=== PATIENT | female | born 1995 | race American Indian/Alaskan Native ===

== ENCOUNTER 2019-07-18 00:52 | Inpatient (IN) | payer SELFPAY ==
[2019-07-18] MEDS ORDERED: Lactated Ringers 1,000 ML IV ONE (01:14)
[2019-07-18] MEDS ORDERED: Ondansetron 4 MG/2 ML SDV IVPUSH PRN ×2 (01:20→15:56)
[2019-07-18] MEDS ORDERED: diphenhydrAMINE 50 MG/ML SDV IVPUSH PRN ×2 (01:21→15:56)
[2019-07-18] MEDS ORDERED: Acetaminophen 325 MG Tab PO PRN (01:22)
[2019-07-18] MEDS ORDERED: Scopolamine 1.5 MG Transdermal Patch TOP ONE (01:30)
[2019-07-18] MEDS: HYDROmorphone 1 MG/ML Syringe IVPUSH PRN ×2 (01:53→07:56)
[2019-07-18] MEDS: Piperacillin/Tazobactam 3.375 GM in Sodium Chloride 0.9% 50 ML IV SCH ×4 (02:01→20:38)
[2019-07-18] MEDS: Lactated Ringers 1,000 ML IV SCH ×2 (02:41→10:54)
[2019-07-18 05:09] LABS: BLOOD UREA NITROGEN,BUN 8 mg/dL (7.0-18.0); CARBON DIOXIDE,CO2 25.6 mmol/L (21.0-32.0); CHLORIDE,CL 104 mmol/L (98-107); GLUCOSE RANDOM 100 mg/dL (74-106); POTASSIUM,K 3.4 mmol/L (3.5-5.1); SODIUM,NA 141 mmol/L (136-145)
--- NOTE | 2019-07-18 08:21 | PCM.HP.2 ---
H&P History of Present Illness - General Date of Service: 07/18/19 Admit Problem/Dx: Admission Diagnosis/Problem Admission Diagnosis/Problem Cholelithiasis Source of Information: Patient History Limitations: Reports: No Limitations - History of Present Illness Initial Comments - Free Text/Narative: Patient is a 24 year old female who presents with acute cholecystitis. She has been having intermittent pain with meals. This usually happens immediately after a meal and is relieved with vomiting. Three days ago the pain became more severe and did not go away. She had multiple episodes of nausea and vomiting. The pain became more severe yesterday and she couldnt eat anything so she presented to an OSH. Her vitals were stable. WBC was normal. Her LFTs were mildly elevated. Her bilirubin was normal. CT abdomen/pelvis showed a stone in the neck of the gallbladder with edematous wall and cholecystic fluid. She was transferred here and admitted. She was made NPO, given IV zosyn, and given IV fluids. Her cbc is relatively normal. LFTs remain mildly elevated and bilirubin is still normal. 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 , , Spontaneous Musculoskeletal History: Reports: Other (See Below) Other Musculoskeletal History: scoliosis Neurological History: Reports: Migraines Psychiatric History: Reports: Addiction, Depression, Suicide Attempt Hematologic History: Reports: Anemia, Iron Deficiency - Infectious Disease History Infectious Disease History: Reports: Hepatitis C - Past Surgical History HEENT Surgical History: Reports: None GI Surgical History: Reports: None Neurological Surgical History: Reports: None Musculoskeletal Surgical History: Reports: None Social & Family History - Family History Cardiac: Reports: [place] Other Cardiac Family History: maternal and paternal grandmother GI: Reports: Cirrhosis Other GI Family History: paternal grandmother Musculoskeletal: Reports: Arthritis Endocrine/Metabolic: Reports: Diabetes, type II - Tobacco Use Smoking Status *Q: Current Every Day Smoker Years of Tobacco use: 1 Packs/Tins Daily: 0.5 Used Tobacco, but Quit: No Second Hand Smoke Exposure: Yes - Caffeine Use Caffeine Use: Reports: Coffee, Soda - Recreational Drug Use Recreational Drug Use: Yes Drug Use in Last 12 Months: Yes Recreational Drug Type: Reports: Methamphetamine, Oxycodone Other Recreational Drug Type: PT quit 5 months ago. H&P Review of Systems - Review of Systems: Review Of Systems: Comprehensive ROS is negative, except as noted in HPI. General: Reports: No Symptoms HEENT: Reports: No Symptoms Pulmonary: Reports: No Symptoms Cardiovascular: Reports: No Symptoms Gastrointestinal: Reports: Abdominal Pain Genitourinary: Reports: No Symptoms Exam - Exam Exam: See Below - Vital Signs Vital Signs: Last Vital Signs Temp 36.3 C 07/18/19 07:31 Pulse 72 07/18/19 07:31 Resp 18 07/18/19 07:31 BP 115/75 07/18/19 07:31 Pulse Ox 98 07/18/19 07:31 Weight: 96.978 kg - Exam General: Alert, Oriented HEENT: Conjunctiva Clear, Mucosa Moist & [place], Posterior Pharynx Clear Neck: Trachea Midline Lungs: Clear to Auscultation, Normal Respiratory Effort Cardiovascular: Regular Rate, Regular Rhythm GI/Abdominal Exam: Soft, No Distention, No Mass, Other (Positive Bhagat's Sign ) Back Exam: Normal Inspection - Patient Data Lab Results Last 24 hrs: Laboratory Results - last 24 hr 07/18/19 Range/Units 04:38 Sodium 141 (136-145) mmol/L Potassium 3.4 L (3.5-5.1) mmol/L Chloride 104 (98-107) mmol/L Carbon Dioxide 25.6 (21.0-32.0) mmol/L BUN 8 (7.0-18.0) mg/dL Creatinine 0.7 (0.6-1.0) mg/dL Est Cr Clr Drug Dosing 109.59 mL/min Estimated GFR (MDRD) > 60.0 ml/min Glucose 100 (74-106) mg/dL Calcium 7.9 L (8.5-10.1) mg/dL Total Bilirubin 0.8 (0.2-1.0) mg/dL AST 159 H (15-37) IU/L ALT 274 H (14-63) IU/L Alkaline Phosphatase 124 H (46-116) U/L Total Protein 6.9 (6.4-8.2) g/dL Albumin 3.1 L (3.4-5.0) g/dL Globulin 3.8 (2.6-4.0) g/dL Albumin/Globulin Ratio 0.8 L (0.9-1.6) Result Diagrams: 07/18/19 09:25 07/18/19 04:38 Sepsis Event Note - Evaluation Sepsis Screening Result: No Definite Risk - Focused Exam Vital Signs: Vital Signs Temp Pulse Resp BP Pulse Ox 07/18/19 07:31 36.3 C 72 18 115/75 98 07/18/19 03:30 36.7 C 76 18 110/64 96 07/18/19 00:59 36.3 C 84 18 122/80 97 Date Exam was Performed: 07/18/19 Time Exam was Performed: 09:33 - Problem List (1) Acute cholecystitis SNOMED Code(s): 92762429 ICD Code: K81.0 - ACUTE CHOLECYSTITIS Status: Acute Current Visit: Yes Problem List Initiated/Reviewed/Updated: Yes Orders Last 24hrs: Active Orders 24 hr Category Date Time Status Admission Status [Patient Status] [ADT] Routine ADT 07/18/19 01:12 Active Activity as Tolerated [RC] .Routine Care 07/18/19 01:24 Active Antiembolic Devices [RC] PER UNIT ROUTINE Care 07/18/19 01:28 Active Incentive Spirometry [RT Incentive Spirometry] [RC] Care 07/18/19 01:28 Active Q1HWA Influenza Vaccine Charge [RC] .DISCHARGE Care 07/18/19 01:18 Active Nothing per Oral Now Diet [DIET] Diet 07/18/19 Breakfast Active CBC WITH AUTO DIFF [HEME] Stat Lab 07/18/19 08:20 Ordered Acetaminophen [Tylenol] Med 07/18/19 01:22 Active 650 mg PO Q6H PRN FLU Vacc [id number](6MOS+)/PF [Fluzone Quad Med 07/18/19 09:00 Once Syringe] 60 mcg IM .ONCE ONE HYDROmorphone [Dilaudid] Med 07/18/19 01:17 Active 0.5 mg IVPUSH Q1H PRN Lactated Ringers [Ringers, Lactated] 1,000 ml Med 07/18/19 02:11 Active IV ASDIRECTED Ondansetron [Zofran] Med 07/18/19 01:20 Active 4 mg IVPUSH Q6H PRN Piperacillin/Tazobactam [Piperacil-Tazobact] 3.375 gm Med 07/18/19 02:00 Active Sodium Chloride 0.9% [Normal Saline] 50 ml IV Q6H diphenhydrAMINE [Benadryl] Med 07/18/19 01:21 Active 25 mg IVPUSH Q4H PRN Sequential Compression Device [OM.PC] Routine Oth 07/18/19 01:28 Ordered Medication Orders Acetaminophen (Tylenol) 650 mg PO Q6H PRN PRN Reason: Fever Diphenhydramine HCl (Benadryl) 25 mg IVPUSH Q4H PRN PRN Reason: Itching Hydromorphone HCl (Dilaudid) 0.5 mg IVPUSH Q1H PRN PRN Reason: Pain Last Admin: 07/18/19 07:56 Dose: 0.5 mg Admin: 07/18/19 01:53 Dose: 0.5 mg Piperacillin Sod/Tazobactam (Sod 3.375 gm/ Sodium Chloride) 50 mls @ 100 mls/ hr IV Q6H [facility] Last Admin: 07/18/19 07:56 Dose: 100 mls/hr Infusion: 07/18/19 02:31 Dose: 100 mls/hr Admin: 07/18/19 02:01 Dose: 100 mls/hr Lactated Ringer's (Ringers, Lactated) 1,000 mls @ 125 mls/hr IV ASDIRECTED [facility] Last Admin: 07/18/19 02:41 Dose: 125 mls/hr Influenza Virus Vaccine (Fluzone Quad [id number] Syringe) 60 mcg IM .ONCE ONE Stop: 07/18/19 09:01 Ondansetron HCl (Zofran) 4 mg IVPUSH Q6H PRN PRN Reason: Nausea Assessment/Plan Comment:: Acute cholecystitis: The patient and I discussed the pathophysiology of biliary disease. The treatment for acute cholecystitis is cholecystectomy. We will attempt it laparoscopically but should I be unable to complete it safely I will convert to open. We discussed the procedures and the expected perioperative courses. We discussed the risks including bleeding, infection or damage to surrounding structure. She verbalized understanding and wishes to proceed.
[2019-07-18] MEDS ORDERED: FLU Vacc QS2019-20(6MOS+)/PF 60 MCG/0.5 ML SYRINGE IM ONE (09:00)
--- NOTE | 2019-07-18 09:51 | PCM.PREANE ---
Preanesthetic Assessment - Anesthesia/Transfusion/Family Hx Anesthesia History: No Prior Anesthesia Family History of Anesthesia Reaction: No Transfusion History: No Prior Transfusion(s) Intubation History: Unknown - Review of Systems General: No Symptoms Pulmonary: No Symptoms Cardiovascular: No Symptoms Gastrointestinal: Abdominal Pain Neurological: No Symptoms Other: Reports: None - Physical Assessment Vital Signs: Last Vital Signs Temp 36.3 C 07/18/19 07:31 Pulse 72 07/18/19 07:31 Resp 18 07/18/19 07:31 BP 115/75 07/18/19 07:31 Pulse Ox 98 07/18/19 07:31 Height: 5 ft 4.96 in Weight: 96.978 kg ASA Class: 2E Mental Status: Alert & Oriented x3 Airway Class: Mallampati = 2 Dentition: Reports: Normal Dentition Thyro-Mental Finger Breadths: 3 Mouth Opening Finger Breadths: 3 ROM/Head Extension: Full Lungs: Clear to Auscultation, Normal Respiratory Effort Cardiovascular: Regular Rate, Regular Rhythm - Lab Values: Laboratory Last Values WBC 5.71 K/uL (4.0-11.0) 07/18/19 09:25 RBC 4.45 M/uL (4.30-5.90) 07/18/19 09:25 Hgb 11.3 g/dL (12.0-16.0) L 07/18/19 09:25 Hct 35.5 % (36.0-46.0) L 07/18/19 09:25 MCV 79.8 fL (80.0-98.0) L 07/18/19 09:25 MCH 25.4 pg (27.0-32.0) L 07/18/19 09:25 MCHC 31.8 g/dL (31.0-37.0) 07/18/19 09:25 RDW Std Deviation 42.8 fl (28.0-62.0) 07/18/19 09:25 RDW Coeff of Yakelin 15 % (11.0-15.0) 07/18/19 09:25 Plt Count 256 K/uL (150-400) 07/18/19 09:25 MPV 9.90 fL (7.40-12.00) 07/18/19 09:25 Neut % (Auto) 63.4 % (48.0-80.0) 07/18/19 09:25 Lymph % (Auto) 23.1 % (16.0-40.0) 07/18/19 09:25 Sullivan % (Auto) 10.2 % (0.0-15.0) 07/18/19 09:25 Eos % (Auto) 2.8 % (0.0-7.0) 07/18/19 09:25 Baso % (Auto) 0.5 % (0.0-1.5) 07/18/19 09:25 Neut # (Auto) 3.6 K/uL (1.4-5.7) 07/18/19 09:25 Lymph # (Auto) 1.3 K/uL (0.6-2.4) 07/18/19 09:25 Sullivan # (Auto) 0.6 K/uL (0.0-0.8) 07/18/19 09:25 Eos # (Auto) 0.2 K/uL (0.0-0.7) 07/18/19 09:25 Baso # (Auto) 0.0 K/uL (0.0-0.1) 07/18/19 09:25 Nucleated RBC % 0.0 /100WBC 07/18/19 09:25 Nucleated RBCs # 0 K/uL 07/18/19 09:25 Sodium 141 mmol/L (136-145) 07/18/19 04:38 Potassium 3.4 mmol/L (3.5-5.1) L 07/18/19 04:38 Chloride 104 mmol/L (98-107) 07/18/19 04:38 Carbon Dioxide 25.6 mmol/L (21.0-32.0) 07/18/19 04:38 BUN 8 mg/dL (7.0-18.0) 07/18/19 04:38 Creatinine 0.7 mg/dL (0.6-1.0) 07/18/19 04:38 Est Cr Clr Drug Dosing 109.59 mL/min 07/18/19 04:38 Estimated GFR (MDRD) > 60.0 ml/min 07/18/19 04:38 Glucose 100 mg/dL (74-106) 07/18/19 04:38 Calcium 7.9 mg/dL (8.5-10.1) L 07/18/19 04:38 Total Bilirubin 0.8 mg/dL (0.2-1.0) 07/18/19 04:38 AST 159 IU/L (15-37) H 07/18/19 04:38 ALT 274 IU/L (14-63) H 07/18/19 04:38 Alkaline Phosphatase 124 U/L (46-116) H 07/18/19 04:38 Total Protein 6.9 g/dL (6.4-8.2) 07/18/19 04:38 Albumin 3.1 g/dL (3.4-5.0) L 07/18/19 04:38 Globulin 3.8 g/dL (2.6-4.0) 07/18/19 04:38 Albumin/Globulin Ratio 0.8 (0.9-1.6) L 07/18/19 04:38 - Allergies Allergies/Adverse Reactions: Allergies Allergy/AdvReac Type Severity Reaction Status Date / Time No Known Allergies Allergy Verified 07/18/19 01:33 - Blood Blood Available: No - Anesthesia Plan Pre-Op Medication Ordered: None - Acknowledgements Anesthesia Type Planned: General Anesthesia Pt an Appropriate Candidate for the Planned Anesthesia: Yes Alternatives and Risks of Anesthesia Discussed w Pt/Guardian: Yes Pt/Guardian Understands and Agrees with Anesthesia Plan: Yes PreAnesthesia Questionnaire - Past Health History Medical/Surgical History: Denies Medical/Surgical History HEENT History: Reports: Impaired Vision Gastrointestinal History: Reports: Hepatitis [employer]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 , , Spontaneous Musculoskeletal History: Reports: Back Pain, Chronic, Other (See Below) Other Musculoskeletal History: scoliosis Neurological History: Reports: Migraines Psychiatric History: Reports: Addiction, Bipolar, Depression, Suicide Attempt Endocrine/Metabolic History: Reports: Obesity/BMI 30+ (BMI 35.6) Hematologic History: Reports: Anemia, Iron Deficiency - Infectious Disease History Infectious Disease History: Reports: Hepatitis C - Past Surgical History HEENT Surgical History: Reports: None GI Surgical History: Reports: None Neurological Surgical History: Reports: None Musculoskeletal Surgical History: Reports: None - SUBSTANCE USE Smoking Status *Q: Current Every Day Smoker Tobacco Use Within Last Twelve Months: Vaping Second Hand Smoke Exposure: Yes Recreational Drug Use History: Yes Recreational Drug Type: Reports: Methamphetamine (until 5 months ago), Oxycodone - HOME MEDS Home Medications: Home Meds DULoxetine [Cymbalta] 30 mg PO BEDTIME 07/18/19 [History] Doxepin HCl [Doxepin] 50 mg PO BEDTIME 07/18/19 [History] - CURRENT (IN HOUSE) MEDS Current Meds: Current Medications Acetaminophen (Tylenol) 650 mg PO Q6H PRN PRN Reason: Fever Diphenhydramine HCl (Benadryl) 25 mg IVPUSH Q4H PRN PRN Reason: Itching Hydromorphone HCl (Dilaudid) 0.5 mg IVPUSH Q1H PRN PRN Reason: Pain Last Admin: 07/18/19 07:56 Dose: 0.5 mg Piperacillin Sod/Tazobactam (Sod 3.375 gm/ Sodium Chloride) 50 mls @ 100 mls/ hr IV Q6H [facility] Last Admin: 07/18/19 07:56 Dose: 100 mls/hr Lactated Ringer's (Ringers, Lactated) 1,000 mls @ 125 mls/hr IV [facility]RECTED [facility] Last Admin: 07/18/19 02:41 Dose: 125 mls/hr Ondansetron HCl (Zofran) 4 mg IVPUSH Q6H PRN PRN Reason: Nausea Discontinued Medications Lactated Ringer's (Ringers, Lactated) 1,000 mls @ 999 mls/hr IV BOLUS ONE Stop: 07/18/19 02:14 Last Admin: 07/18/19 01:46 Dose: 999 mls/hr Influenza Virus Vaccine (Fluzone Quad [id number] Syringe) 60 mcg IM .ONCE ONE Stop: 07/18/19 09:01 Scopolamine (Transderm-Scop) 1.5 mg TOP ONETIME ONE Stop: 07/18/19 01:31 Last Admin: 07/18/19 02:09 Dose: 1.5 mg
[2019-07-18] MEDS ORDERED: ePHEDrine 50 MG/ML SDV ONE (11:18)
[2019-07-18] MEDS ORDERED: Rocuronium 100 MG/10 ML Syringe ONE (11:18)
[2019-07-18] MEDS ORDERED: fentaNYL 250 MCG/5 ML SDV ONE ×2 (11:18→13:11)
[2019-07-18] MEDS ORDERED: Midazolam 1 MG/ML 2 ML SDV ONE (11:18)
[2019-07-18] MEDS ORDERED: Propofol 200 MG/20 ML SDV ONE (11:18)
[2019-07-18] MEDS ORDERED: Succinylcholine/Sod PF 100 MG/5 ML SYRINGE IV ONE (11:18)
[2019-07-18] MEDS ORDERED: Sodium Chloride 0.9% 20 ML ONE (11:18)
[2019-07-18] MEDS ORDERED: Bupivacaine 0.5% 10 ML SDV ONE ×2 (11:59→13:08)
[2019-07-18] MEDS ORDERED: Bupivacaine 0.5% 30 ML SDV ONE (13:08)
[2019-07-18] MEDS ORDERED: ceFAZolin 1 GM Vial ONE (14:04)
[2019-07-18] MEDS ORDERED: Sugammadex Sodium 200 MG/2 ML VIAL ONE (14:37)
[2019-07-18] MEDS ORDERED: HYDROmorphone 2 MG/ML Syringe ONE ×2 (14:44→15:27)
[2019-07-18] MEDS ORDERED: Acetaminophen 1,000 MG in Premix Bag 1 BAG IV PRN (14:51)
[2019-07-18] MEDS ORDERED: diphenhydrAMINE 25 MG Cap PO PRN (15:56)
[2019-07-18] MEDS ORDERED: Naloxone 0.4 MG/ML Syringe IVPUSH PRN (15:56)
--- NOTE | 2019-07-18 15:56 | PCM.OPNOTE ---
- General Post-Op/Procedure Note Date of Surgery/Procedure: 07/18/19 Operative Procedure(s): Laparoscopic converted to open cholecystectomy Findings: Grossly inflamed enlarged and distended gallbladder containing a large stone. Pre Op Diagnosis: Acute cholecystitis secondary to cholelithiasis Post-Op Diagnosis: same Anesthesia Technique: General ET Tube Primary Surgeon: Sadia Pinto Fluid Replacement, Intraop: 2,400 Output, Urine Amount: 300 EBL in mLs: 400 Surgical Drain/Tube Type: Adis Drain Condition: Good Free Text/Narrative:: Intake & Output 07/18/19 07/18/19 07/18/19 06:59 14:59 22:59 Intake Total 1071 50 Output Total 500 Balance 571 50
[2019-07-18] MEDS ORDERED: Morphine 2 MG/ML SYRINGE IVPUSH ONE (16:07)
[2019-07-18] MEDS ORDERED: fentaNYL 100 MCG/2 ML SDV ONE (16:09)
[2019-07-18] MEDS: fentaNYL 100 MCG/2 ML SDV IVPUSH PRN ×4 (16:11→16:58)
[2019-07-18 16:57] LABS: BLOOD UREA NITROGEN,BUN 9 mg/dL (7.0-18.0); CARBON DIOXIDE,CO2 25.1 mmol/L (21.0-32.0); CHLORIDE,CL 105 mmol/L (98-107); GLUCOSE RANDOM 104 mg/dL (74-106); POTASSIUM,K 3.4 mmol/L (3.5-5.1); SODIUM,NA 141 mmol/L (136-145)
--- NOTE | 2019-07-18 17:21 | PCM.POSTAN ---
POST ANESTHESIA ASSESSMENT - MENTAL STATUS Mental Status: Alert, Oriented - VITAL SIGNS Vital Signs: Last Vital Signs Temp 37.1 C 07/18/19 15:44 Pulse 87 07/18/19 17:11 Resp 15 07/18/19 17:11 BP 110/62 07/18/19 17:11 Pulse Ox 99 07/18/19 17:11 - RESPIRATORY Respiratory Status: Respiratory Rate WNL, Airway Patent, O2 Saturation Stable - CARDIOVASCULAR CV Status: Pulse Rate WNL, Blood Pressure Stable - GASTROINTESTINAL GI Status: No Symptoms - PAIN Pain Score: 5 - POST OP HYDRATION Hydration Status: Adequate & Stable - OBSERVATIONS Free Text/Narrative:: No anesthesia problems
[2019-07-18] MEDS: Morphine PF 30 MG/30 ML PCA Vial IV SCH (17:52)
--- NOTE | 2019-07-18 19:21 | OR ---
SURGEON: SADIA LOWE MD DATE OF PROCEDURE: 07/18/2019 PREOPERATIVE DIAGNOSIS: Acute cholecystitis. POSTOPERATIVE DIAGNOSIS: Acute cholecystitis secondary to cholelithiasis. PROCEDURE PERFORMED: Laparoscopic, converted to open, cholecystectomy. PRIMARY SURGEON: Sadia Lowe MD SECONDARY SURGEON: Glenn Cole MD ANESTHESIA: General endotracheal anesthesia. FLUIDS: 2400 mL of crystalloid. ESTIMATED BLOOD LOSS: 400 mL. URINE OUTPUT: 300 mL. FINDINGS: Grossly enlarged and inflamed gallbladder with gallstone lodged in the neck of the gallbladder. COMPLICATIONS: None. INDICATIONS: The patient is a 24-year-old female who presented with 3 days of abdominal pain. Workup revealed acute cholecystitis. The patient and I discussed the need for a cholecystectomy. I explained that I would attempt it laparoscopically, but should I be unable to perform it safely that I would convert to open. The patient and I discussed the risks including bleeding, infection, or damage to surrounding structures. The patient verbalized understanding and wishes to proceed. PROCEDURE IN DETAIL: The patient was brought into the OR and placed on the OR table in supine position. A time-out was completed verifying the patient's name, age, date of , allergies, and procedure to be performed. General endotracheal anesthesia was induced. The left arm was tucked to the patient's side and a Allred catheter placed. The abdomen was prepped and draped in usual standard fashion. I anesthetized the infraumbilical fold with 0.5% Marcaine plain. An 11 blade was used to make an incision along the infraumbilical fold. Cautery was used to dissect down to the level of subcutaneous fat. I bluntly dissected down to the level of the fascia. The fascia was elevated with Shyam's and incised sharply with curved Pedro scissors. Entry into the abdomen was palpated digitally. Stay sutures were placed on either side of the fascia using 0 Vicryl suture. A 12 mm Kirk trocar was placed in the abdomen and the abdomen insufflated. A 5 mm 30-degree scope was inserted in the abdomen, and I inspected the area underneath my initial trocar placement. No damage to surrounding structures was noted. The patient was placed in reverse Trendelenburg position and airplaned slightly to the left. 5 mm trocars were placed under direct visualization in the following locations; one in the epigastric area, one in the right flank, and one 2 fingerbreadths below the right subcostal margin in the midclavicular line. The dome of the gallbladder was enlarged, inflamed, and tense. A laparoscopic aspirating needle was placed through the dome of the gallbladder and 30 mL of watery green appearing bile was aspirated. This allowed me enough redundancy within the gallbladder that I could grasp it and elevate it cranially. The gallbladder was densely inflamed to the surrounding tissues. The omentum and inflamed fat were gently swept away using suction and endoscopic Kittner devices. I was then able to clear away most of the attachments down to the level of the infundibulum. I continued to use gentle blunt dissection to identify what appeared to be my cystic duct and artery. I attempted to create a window between the gallbladder wall and the liver bed itself, but the tissue around the area was so densely inflamed and thickened that I was unable to create this window. I continued to get into more bleeding and so I attempted to perform a dome down dissection of the gallbladder, however, the gallbladder wall was so thick that I could not create this plane. The decision was made to convert to open to allow better visualization and safer dissection. All the laparoscopic equipment was taken off the field and the ports removed. A 10 blade was used to make a right upper quadrant oblique incision. Cautery was used to dissect down through the layers of the subcutaneous fat down to the abdominal wall. The anterior abdominal fascia, rectus muscles and oblique muscles were opened using electrocautery. The posterior fascia and peritoneum was elevated and incised sharply. Care was taken to protect all the intraabdominal contents as I extended my incision laterally and medially. Retractors and moistened laps were placed into the abdomen. My partner, Dr. Glenn Cole, was asked to assist with the case. I aspirated another 10 mL of now clear appearing bile from the gallbladder itself. The gallbladder was grasped with a Maria G clamp, and we attempted to perform a dome down dissection of the gallbladder. The plane between the gallbladder wall and the gallbladder fossa was extremely inflamed and dense, making this dissection quite difficult. We were able to obtain some mobility, but given how obscured the plane was, we decided to change our direction and begin dissection more proximally. Using a Kittner device, we were able to take down the adhesions around the cystic duct and artery. Once our critical view was achieved, we doubly clipped and ligated the cystic duct and artery. We then began our dissection along the gallbladder fossa from proximal to distal. Using a combination of gentle blunt dissection as well as cautery, we were eventually able to free the gallbladder up completely from the gallbladder fossa. Electrocautery was used to achieve gross hemostasis. Surgifoam, Surgicel, and Avitene were then placed in the gallbladder fossa and pressure held for 2 minutes. We then reinspected our operative field. It was grossly hemostatic. The abdomen was irrigated with a normal saline-Ancef solution, which was suctioned out. A 19-Czech Adis drain was brought in through the right lateral port site and placed within the gallbladder fossa. It was secured to the skin using a 2-0 silk suture. Once we had ensured that all counts were complete and correct, we began closure of our abdominal wall. The peritoneum and posterior fascia were closed with running 0 Vicryl sutures. The oblique muscles and the anterior abdominal wall fascia were closed with interrupted 0 Ethibond sutures. An On-Q pump was placed over the top of this closure. The subcutaneous fat layer was closed with a running 3-0 Vicryl suture. Skin dalila were used to close the skin. I then turned my attention to the infraumbilical port site. The fascia at this site was closed with interrupted 0 Vicryl sutures. The skin was closed with dalila. Sterile dressings were applied. The patient tolerated the procedure well and was taken to the PACU in stable condition. Again, all counts were complete and correct at the end of the case. ALEC / PAPITO /[id number] GENNY
[2019-07-18] MEDS: DULOXETINE 30 MG PO SCH (20:53)
[2019-07-18] MEDS ORDERED: DULoxetine 30 MG Cap PO SCH (21:00)
[2019-07-18] MEDS: Cyclobenzaprine 5 MG Tab PO SCH (22:42)
[2019-07-19] MEDS: Piperacillin/Tazobactam 3.375 GM in Sodium Chloride 0.9% 50 ML IV SCH ×2 (01:14→08:15)
[2019-07-19] MEDS: Morphine PF 30 MG/30 ML PCA Vial IV SCH (03:21)
[2019-07-19 06:07] LABS: BLOOD UREA NITROGEN,BUN 6 mg/dL (7.0-18.0); CHLORIDE,CL 101 mmol/L (98-107); GLUCOSE RANDOM 96 mg/dL (74-106); POTASSIUM,K 3.1 mmol/L (3.5-5.1); SODIUM,NA 136 mmol/L (136-145)
[2019-07-19] MEDS: Cyclobenzaprine 5 MG Tab PO SCH ×3 (06:16→22:21)
[2019-07-19] MEDS: Lactated Ringers 1,000 ML IV SCH (06:19)
--- NOTE | 2019-07-19 07:13 | PCM48HPAN ---
Post Anesthesia Note - EVALUATION WITHIN 48HRS OF ANESTHETIC Vital Signs in Normal Range: Yes Patient Participated in Evaluation: Yes Respiratory Function Stable: Yes Airway Patent: Yes Cardiovascular Function Stable: Yes Hydration Status Stable: Yes Pain Control Satisfactory: Yes Nausea and Vomiting Control Satisfactory: Yes Mental Status Recovered: Yes Vital Signs: Last Vital Signs Temp 37.3 C 07/18/19 22:45 Pulse 102 H 07/18/19 22:45 Resp 16 07/18/19 22:45 BP 126/54 L 07/18/19 22:45 Pulse Ox 90 L 07/18/19 22:45
[2019-07-19] MEDS: Ketorolac 10 MG Tab PO SCH ×3 (08:42→20:26)
[2019-07-19] MEDS: Polyethylene Glycol 3350 Powder 17 GM Packet PO SCH (08:42)
[2019-07-19] MEDS: Multivitamin Tab PO SCH (08:42)
[2019-07-19] MEDS: Acetaminophen/oxyCODONE 325-10 MG Tab PO PRN ×3 (13:21→23:54)
--- NOTE | 2019-07-19 14:12 | PCM.SURGPN ---
- General Info Date of Service: 07/19/19 Date of Surgery/Procedure: 07/18/19 POD#: 1 - Review of Systems General: Reports: No Symptoms HEENT: Reports: No Symptoms Pulmonary: Reports: No Symptoms Cardiovascular: Reports: No Symptoms Gastrointestinal: Reports: Abdominal Pain. Denies: Decreased Appetite, Flatus Genitourinary: Reports: No Symptoms Musculoskeletal: Reports: No Symptoms Skin: Reports: No Symptoms - Patient Data Vitals - Most Recent: Last Vital Signs Temp 37.3 C 07/18/19 22:45 Pulse 102 H 07/18/19 22:45 Resp 16 07/18/19 22:45 BP 126/54 L 07/18/19 22:45 Pulse Ox 90 L 07/18/19 22:45 Weight - Most Recent: 96.978 kg I&O - Last 24 Hours: Intake & Output 07/18/19 07/19/19 07/19/19 22:59 06:59 14:59 Intake Total 5650 1761 Output Total 475 1090 Balance 5175 671 Lab Results Last 24 Hrs: Laboratory Results - last 24 hr 07/18/19 07/18/19 07/19/19 Range/Units 16:25 16:25 05:37 WBC 11.63 H 7.60 (4.0-11.0) K/uL RBC 4.40 4.17 L (4.30-5.90) M/uL Hgb 11.4 L 10.7 L (12.0-16.0) g/dL Hct 35.8 L 33.7 L (36.0-46.0) % MCV 81.4 80.8 (80.0-98.0) fL MCH 25.9 L 25.7 L (27.0-32.0) pg MCHC 31.8 31.8 (31.0-37.0) g/dL RDW Std Deviation 44.2 43.9 (28.0-62.0) fl RDW Coeff of Yakelin 15 15 (11.0-15.0) % Plt Count 229 228 (150-400) K/uL MPV 10.00 9.90 (7.40-12.00) fL Nucleated RBC % 0.0 0.0 /100WBC Nucleated RBCs # 0 0 K/uL Sodium 141 (136-145) mmol/L Potassium 3.4 L (3.5-5.1) mmol/L Chloride 105 (98-107) mmol/L Carbon Dioxide 25.1 (21.0-32.0) mmol/L BUN 9 (7.0-18.0) mg/dL Creatinine 0.7 (0.6-1.0) mg/dL Est Cr Clr Drug Dosing 109.41 mL/min Estimated GFR (MDRD) > 60.0 ml/min Glucose 104 (74-106) mg/dL Calcium 7.4 L (8.5-10.1) mg/dL Total Bilirubin 1.0 (0.2-1.0) mg/dL AST 112 H (15-37) IU/L ALT 248 H (14-63) IU/L Alkaline Phosphatase 111 (46-116) U/L Total Protein 6.2 L (6.4-8.2) g/dL Albumin 2.8 L (3.4-5.0) g/dL Globulin 3.4 (2.6-4.0) g/dL Albumin/Globulin Ratio 0.8 L (0.9-1.6) 07/19/19 Range/Units 05:37 WBC (4.0-11.0) K/uL RBC (4.30-5.90) M/uL Hgb (12.0-16.0) g/dL Hct (36.0-46.0) % MCV (80.0-98.0) fL MCH (27.0-32.0) pg MCHC (31.0-37.0) g/dL RDW Std Deviation (28.0-62.0) fl RDW Coeff of Yakelin (11.0-15.0) % Plt Count (150-400) K/uL MPV (7.40-12.00) fL Nucleated RBC % /100WBC Nucleated RBCs # K/uL Sodium 136 (136-145) mmol/L Potassium 3.1 L (3.5-5.1) mmol/L Chloride 101 (98-107) mmol/L Carbon Dioxide 26.0 (21.0-32.0) mmol/L BUN 6 L (7.0-18.0) mg/dL Creatinine 0.6 (0.6-1.0) mg/dL Est Cr Clr Drug Dosing 127.65 mL/min Estimated GFR (MDRD) > 60.0 ml/min Glucose 96 (74-106) mg/dL Calcium 7.3 L (8.5-10.1) mg/dL Total Bilirubin 1.1 H (0.2-1.0) mg/dL AST 95 H (15-37) IU/L ALT 228 H (14-63) IU/L Alkaline Phosphatase 112 (46-116) U/L Total Protein 6.1 L (6.4-8.2) g/dL Albumin 2.7 L (3.4-5.0) g/dL Globulin 3.4 (2.6-4.0) g/dL Albumin/Globulin Ratio 0.8 L (0.9-1.6) Med Orders - Current: Current Medications Cyclobenzaprine HCl (Flexeril) 5 mg PO TID [facility] Last Admin: 07/19/19 06:16 Dose: 5 mg Diphenhydramine HCl (Benadryl) 25 mg IVPUSH Q4H PRN PRN Reason: Itching Diphenhydramine HCl (Benadryl) 25 mg IVPUSH Q6H PRN PRN Reason: Itching Diphenhydramine HCl (Benadryl) 25 mg PO Q6H PRN PRN Reason: Itching Duloxetine HCl (Cymbalta) 30 mg PO BEDTIME [facility] Last Admin: 07/18/19 20:53 Dose: 30 mg Hydromorphone HCl (Dilaudid) 0.5 mg IVPUSH Q1H PRN PRN Reason: Pain Last Admin: 07/18/19 07:56 Dose: 0.5 mg Ketorolac Tromethamine (Toradol) 10 mg PO Q6H [facility] Stop: 07/24/19 08:31 Last Admin: 07/19/19 08:42 Dose: 10 mg Multivitamins/Minerals/Vitamin C (Tab-A-January) 1 tab PO DAILY [facility] Last Admin: 07/19/19 08:42 Dose: 1 tab Naloxone HCl (Narcan) 0.04 mg IVPUSH Q3M PRN PRN Reason: Respiratory Depression Ondansetron HCl (Zofran) 4 mg IVPUSH Q6H PRN PRN Reason: Nausea/Vomiting Oxycodone/Acetaminophen (Percocet 325-10 Mg) 2 tab PO Q4H PRN PRN Reason: Pain Last Admin: 07/19/19 13:21 Dose: 2 tab Polyethylene Glycol (Miralax) 17 gm PO DAILY [facility] Last Admin: 07/19/19 08:42 Dose: 17 gm Discontinued Medications Acetaminophen (Tylenol) 650 mg PO Q6H PRN PRN Reason: Fever Bupivacaine HCl (Sensorcaine-Mpf 0.5%) Confirm Administered Dose 10 ml .ROUTE .STK-MED ONE Stop: 07/18/19 12:00 Bupivacaine HCl (Sensorcaine-Mpf 0.5%) Confirm Administered Dose 10 ml .ROUTE .STK-MED ONE Stop: 07/18/19 13:09 Bupivacaine HCl (Marcaine 0.5%) Confirm Administered Dose 120 ml .ROUTE .STK- MED ONE Stop: 07/18/19 13:09 Cefazolin Sodium (Ancef) Confirm Administered Dose 1 gm .ROUTE .STK-MED ONE Stop: 07/18/19 14:05 Duloxetine HCl (Cymbalta) 30 mg PO BEDTIME [facility] Ephedrine Sulfate (Ephedrine Sulfate) Confirm Administered Dose 50 mg .ROUTE .STK-MED ONE Stop: 07/18/19 11:19 Fentanyl (Sublimaze) Confirm Administered Dose 250 mcg .ROUTE .STK-MED ONE Stop: 07/18/19 11:19 Fentanyl (Sublimaze) Confirm Administered Dose 250 mcg .ROUTE .STK-MED ONE Stop: 07/18/19 13:12 Fentanyl (Sublimaze) 50 - 100 mcg IVPUSH Q5M PRN PRN Reason: Pain (severe 7-10) Last Admin: 07/18/19 16:58 Dose: 50 mcg Fentanyl (Sublimaze) Confirm Administered Dose 100 mcg .ROUTE .STK-MED ONE Stop: 07/18/19 16:10 Last Admin: 07/18/19 17:42 Dose: Not Given Hydromorphone HCl (Dilaudid) Confirm Administered Dose 2 mg .ROUTE .STK-MED ONE Stop: 07/18/19 14:45 Hydromorphone HCl (Dilaudid) Confirm Administered Dose 2 mg .ROUTE .STK-MED ONE Stop: 07/18/19 15:28 Lactated Ringer's (Ringers, Lactated) 1,000 mls @ 999 mls/hr IV BOLUS ONE Stop: 07/18/19 02:14 Last Admin: 07/18/19 01:46 Dose: 999 mls/hr Piperacillin Sod/Tazobactam (Sod 3.375 gm/ Sodium Chloride) 50 mls @ 100 mls/ hr IV Q6H [facility] Last Admin: 07/19/19 08:15 Dose: 100 mls/hr Lactated Ringer's (Ringers, Lactated) 1,000 mls @ 125 mls/hr IV ASDIRECTED [facility] Last Admin: 07/19/19 06:19 Dose: 125 mls/hr Sodium Chloride (Normal Saline) Confirm Administered Dose 20 mls @ as directed .ROUTE .STK-MED ONE Stop: 07/18/19 11:19 Acetaminophen 1,000 mg/ Premix 100 mls @ 400 mls/hr IV Q6H PRN PRN Reason: Pain Last Infusion: 07/18/19 17:01 Dose: Infused Acetaminophen (Ofirmev) Confirm Administered Dose 100 mls @ as directed .ROUTE .STK-MED ONE Stop: 07/18/19 16:42 Midazolam HCl (Versed 1 Mg/Ml) Confirm Administered Dose 2 mg .ROUTE .STK-MED ONE Stop: 07/18/19 11:19 Morphine Sulfate (Morphine Plate Cleaner 30 Mg In 30 Ml) 0 mg IV ASDIRECTED [facility]; Protocol Last Admin: 07/19/19 03:21 Dose: 30 mg Morphine Sulfate (Morphine) 2 mg IVPUSH ONETIME ONE Stop: 07/18/19 16:08 Last Admin: 07/18/19 16:31 Dose: 2 mg Ondansetron HCl (Zofran) 4 mg IVPUSH Q6H PRN PRN Reason: Nausea Propofol (Diprivan 20 Ml) Confirm Administered Dose 200 mg .ROUTE .STK-MED ONE Stop: 07/18/19 11:19 Rocuronium [place] (Zemuron) Confirm Administered Dose 100 mg .ROUTE .STK-MED ONE Stop: 07/18/19 11:19 Scopolamine (Transderm-Scop) 1.5 mg TOP ONETIME ONE Stop: 07/18/19 01:31 Last Admin: 07/18/19 02:09 Dose: 1.5 mg Sugammadex Sodium (Bridion) Confirm Administered Dose 200 mg .ROUTE .STK-MED ONE Stop: 07/18/19 14:38 - Exam Wound/Incisions: Healing Well, Dressing Dry and Intact, Other (Drain with serosanguinous drainage. No bile staining. ) General: Alert, Oriented HEENT: Pupils Equal, Pupils Reactive Lungs: Normal Respiratory Effort Cardiovascular: Regular Rate GI/Abdominal Exam: Soft, Non-Tender, No Distention, No Mass Skin: Warm, Dry, Intact Neurological: No New Focal Deficit Sepsis Event Note - Evaluation Sepsis Screening Result: No Definite Risk - Problem List & Annotations (1) Acute cholecystitis SNOMED Code(s): 32298133 Code(s): K81.0 - ACUTE CHOLECYSTITIS Status: Acute Current Visit: Yes - Problem List Review Problem List Initiated/Reviewed/Updated: Yes - My Orders Last 24 Hours: Active Orders 24 hr Category Date Time Status Patient Status [ADT] Routine ADT 07/18/19 15:59 Active Communication Order [RC] PER UNIT ROUTINE Care 07/18/19 15:57 Active [employer]ER Record [RC] Q4H Care 07/18/19 15:57 Active Remove Allred Catheter [Urinary Catheter Removal] [RC] Care 07/19/19 08:32 Active Per Unit Routine Vital Signs [RC] PER UNIT ROUTINE Care 07/18/19 15:57 Active Clear Liquid Diet [DIET] Diet 07/18/19 Dinner Active CBC W/O DIFF,HEMOGRAM [HEME] AM Lab 07/20/19 05:11 Ordered CBC W/O DIFF,HEMOGRAM [HEME] AM Lab 07/21/19 05:11 Ordered CMP [COMPREHENSIVE METABOLIC PN,CMP] [CHEM] AM Lab 07/20/19 05:11 Ordered CMP [COMPREHENSIVE METABOLIC PN,CMP] [CHEM] AM Lab 07/21/19 05:11 Ordered HEPATITIS C ANTIBODY [CHEM] Routine Lab 07/19/19 08:31 Ordered Acetaminophen/oxyCODONE [Percocet 325-10 MG] Med 07/19/19 09:42 Active 2 tab PO Q4H PRN Cyclobenzaprine [Flexeril] Med 07/18/19 22:00 Active 5 mg PO TID DULoxetine [Cymbalta] Med 07/18/19 21:00 Active 30 mg PO BEDTIME Heparin Sodium Med 07/19/19 14:15 Ordered 5,000 units SUBCUT Q12H Ketorolac [Toradol] Med 07/19/19 08:30 Active 10 mg PO Q6H Multivitamins [Tab-A-January] Med 07/19/19 09:00 Active 1 tab PO DAILY Naloxone [Narcan] Med 07/18/19 15:56 Active 0.04 mg IVPUSH Q3M PRN Ondansetron [Zofran] Med 07/18/19 15:56 Active 4 mg IVPUSH Q6H PRN diphenhydrAMINE [Benadryl] Med 07/18/19 15:56 Active 25 mg IVPUSH Q6H PRN diphenhydrAMINE [Benadryl] Med 07/18/19 15:56 Active 25 mg PO Q6H PRN polyethylene glycoL 3350 [MiraLAX] Med 07/19/19 09:00 Active 17 gm PO DAILY Pulse Oximetry Continuous Monitoring [OM.PC] Routine Oth 07/18/19 15:57 Ordered Medication Orders Cyclobenzaprine HCl (Flexeril) 5 mg PO TID [facility] Last Admin: 07/19/19 06:16 Dose: 5 mg Admin: 07/18/19 22:42 Dose: 5 mg Diphenhydramine HCl (Benadryl) 25 mg IVPUSH Q4H PRN PRN Reason: Itching Diphenhydramine HCl (Benadryl) 25 mg IVPUSH Q6H PRN PRN Reason: Itching Diphenhydramine HCl (Benadryl) 25 mg PO Q6H PRN PRN Reason: Itching Duloxetine HCl (Cymbalta) 30 mg PO BEDTIME [facility] Last Admin: 07/18/19 20:53 Dose: 30 mg Hydromorphone HCl (Dilaudid) 0.5 mg IVPUSH Q1H PRN PRN Reason: Pain Last Admin: 07/18/19 07:56 Dose: 0.5 mg Admin: 07/18/19 01:53 Dose: 0.5 mg Ketorolac Tromethamine (Toradol) 10 mg PO Q6H [facility] Stop: 07/24/19 08:31 Last Admin: 07/19/19 08:42 Dose: 10 mg Multivitamins/Minerals/Vitamin C (Tab-A-January) 1 tab PO DAILY [facility] Last Admin: 07/19/19 08:42 Dose: 1 tab Naloxone HCl (Narcan) 0.04 mg IVPUSH Q3M PRN PRN Reason: Respiratory Depression Ondansetron HCl (Zofran) 4 mg IVPUSH Q6H PRN PRN Reason: Nausea/Vomiting Oxycodone/Acetaminophen (Percocet 325-10 Mg) 2 tab PO Q4H PRN PRN Reason: Pain Last Admin: 07/19/19 13:21 Dose: 2 tab Polyethylene Glycol (Miralax) 17 gm PO DAILY [facility] Last Admin: 07/19/19 08:42 Dose: 17 gm - Plan Plan (Free Text/Narrative):: Patient feels that morphine causes muscle spasms. Does not feel like the morphine [employer] is helping. Would like to try something else. Pain: Morphine [employer]ER d/c. IV dilaudid 0.5mg q 1hr prn. Percocet 325-5mg 2 tab q 4hr prn pain. Scheduled oral Toradol q 6h. Patient's OnQ pump was clamped this morning. This was unclamped. After making these changes I visited the patient later and she was much more comfortable. Was able to get out of bed and walk around the room. CV/Pulm: VSS. Encourage OOB activity and IS use. GI: Continue clears for today. Once patient is passing gas and/or having BM will advance diet. Prn meds for nausea. LFTs slightly elevated. Continue to monitor. Renal: UOP adequate. D/C IVF. BUN/Cr normal. Heme: Hgb slightly decreased. Continue to monitor. ID; D/C antibiotics. WBC within normal limits Px: heparin SC. SCDs. Since tolerating clears no need for GI px at this time.
[2019-07-19] MEDS: Heparin Sodium 5,000 Units/ML Vial SUBCUT SCH (14:31)
[2019-07-19] MEDS: DULOXETINE 30 MG PO SCH (21:05)
[2019-07-20] MEDS: Ketorolac 10 MG Tab PO SCH ×4 (02:45→20:01)
[2019-07-20] MEDS: Heparin Sodium 5,000 Units/ML Vial SUBCUT SCH ×2 (02:45→14:30)
[2019-07-20] MEDS: Cyclobenzaprine 5 MG Tab PO SCH ×3 (06:30→21:40)
[2019-07-20 06:58] LABS: BLOOD UREA NITROGEN,BUN 7 mg/dL (7.0-18.0); CARBON DIOXIDE,CO2 25.8 mmol/L (21.0-32.0); CHLORIDE,CL 102 mmol/L (98-107); GLUCOSE RANDOM 78 mg/dL (74-106); POTASSIUM,K 3.1 mmol/L (3.5-5.1); SODIUM,NA 140 mmol/L (136-145)
[2019-07-20] MEDS ORDERED: Potassium Chloride 20 MEQ Tab.ER PO ONE (08:23)
--- NOTE | 2019-07-20 08:23 | PCM.SURGPN ---
- General Info Date of Service: 07/20/19 Date of Surgery/Procedure: 07/18/19 POD#: 2 Functional Status: Reports: Pain Controlled, Tolerating Diet, Ambulating, Urinating - Review of Systems General: Reports: No Symptoms HEENT: Reports: No Symptoms Pulmonary: Reports: No Symptoms Cardiovascular: Reports: No Symptoms Gastrointestinal: Reports: Flatus. Denies: Abdominal Pain, Decreased Appetite Genitourinary: Reports: No Symptoms Musculoskeletal: Reports: No Symptoms - Patient Data Vitals - Most Recent: Last Vital Signs Temp 36.9 C 07/20/19 04:00 Pulse 85 07/20/19 04:00 Resp 17 07/20/19 04:00 BP 103/62 07/20/19 04:00 Pulse Ox 93 L 07/20/19 04:00 Weight - Most Recent: 96.978 kg I&O - Last 24 Hours: Intake & Output 07/19/19 07/20/19 07/20/19 22:59 06:59 14:59 Intake Total 550 600 Output Total 2170 560 Balance -1620 40 Lab Results Last 24 Hrs: Laboratory Results - last 24 hr 07/19/19 07/20/19 07/20/19 Range/Units 05:37 06:20 06:20 WBC 5.67 (4.0-11.0) K/uL RBC 3.95 L (4.30-5.90) M/uL Hgb 10.1 L (12.0-16.0) g/dL Hct 32.0 L (36.0-46.0) % MCV 81.0 (80.0-98.0) fL MCH 25.6 L (27.0-32.0) pg MCHC 31.6 (31.0-37.0) g/dL RDW Std Deviation 43.3 (28.0-62.0) fl RDW Coeff of Yakelin 15 (11.0-15.0) % Plt Count 223 (150-400) K/uL MPV 9.70 (7.40-12.00) fL Nucleated RBC % 0.0 /100WBC Nucleated RBCs # 0 K/uL Sodium 140 (136-145) mmol/L Potassium 3.1 L (3.5-5.1) mmol/L Chloride 102 (98-107) mmol/L Carbon Dioxide 25.8 (21.0-32.0) mmol/L BUN 7 (7.0-18.0) mg/dL Creatinine 0.6 (0.6-1.0) mg/dL Est Cr Clr Drug Dosing 127.65 mL/min Estimated GFR (MDRD) > 60.0 ml/min Glucose 78 (74-106) mg/dL Calcium 7.6 L (8.5-10.1) mg/dL Total Bilirubin 0.6 (0.2-1.0) mg/dL AST 83 H (15-37) IU/L ALT 198 H (14-63) IU/L Alkaline Phosphatase 99 (46-116) U/L Total Protein 6.2 L (6.4-8.2) g/dL Albumin 2.6 L (3.4-5.0) g/dL Globulin 3.6 (2.6-4.0) g/dL Albumin/Globulin Ratio 0.7 L (0.9-1.6) Hep C Ab Index (EVELIA) > 11.00 H (<0.8) INDEX Med Orders - Current: Current Medications Cyclobenzaprine HCl (Flexeril) 5 mg PO TID [facility] Last Admin: 07/20/19 06:30 Dose: 5 mg Diphenhydramine HCl (Benadryl) 25 mg IVPUSH Q4H PRN PRN Reason: Itching Diphenhydramine HCl (Benadryl) 25 mg IVPUSH Q6H PRN PRN Reason: Itching Diphenhydramine HCl (Benadryl) 25 mg PO Q6H PRN PRN Reason: Itching Duloxetine HCl (Cymbalta) 30 mg PO BEDTIME [facility] Last Admin: 07/19/19 21:05 Dose: 30 mg Heparin Sodium (Porcine) (Heparin Sodium) 5,000 units SUBCUT Q12H [facility] Last Admin: 07/20/19 02:45 Dose: 5,000 units Hydromorphone HCl (Dilaudid) 0.5 mg IVPUSH Q1H PRN PRN Reason: Pain Last Admin: 07/18/19 07:56 Dose: 0.5 mg Ketorolac Tromethamine (Toradol) 10 mg PO Q6H [facility] Stop: 07/24/19 08:31 Last Admin: 07/20/19 02:45 Dose: 10 mg Multivitamins/Minerals/Vitamin C (Tab-A-January) 1 tab PO DAILY [facility] Last Admin: 07/19/19 08:42 Dose: 1 tab Naloxone HCl (Narcan) 0.04 mg IVPUSH Q3M PRN PRN Reason: Respiratory Depression Ondansetron HCl (Zofran) 4 mg IVPUSH Q6H PRN PRN Reason: Nausea/Vomiting Oxycodone/Acetaminophen (Percocet 325-10 Mg) 2 tab PO Q4H PRN PRN Reason: Pain Last Admin: 07/19/19 23:54 Dose: 2 tab Polyethylene Glycol (Miralax) 17 gm PO DAILY [facility] Last Admin: 07/19/19 08:42 Dose: 17 gm Discontinued Medications Acetaminophen (Tylenol) 650 mg PO Q6H PRN PRN Reason: Fever Bupivacaine HCl (Sensorcaine-Mpf 0.5%) Confirm Administered Dose 10 ml .ROUTE .STK-MED ONE Stop: 07/18/19 12:00 Bupivacaine HCl (Sensorcaine-Mpf 0.5%) Confirm Administered Dose 10 ml .ROUTE .STK-MED ONE Stop: 07/18/19 13:09 Bupivacaine HCl (Marcaine 0.5%) Confirm Administered Dose 120 ml .ROUTE .STK- MED ONE Stop: 07/18/19 13:09 Cefazolin Sodium (Ancef) Confirm Administered Dose 1 gm .ROUTE .STK-MED ONE Stop: 07/18/19 14:05 Duloxetine HCl (Cymbalta) 30 mg PO BEDTIME [facility] Ephedrine Sulfate (Ephedrine Sulfate) Confirm Administered Dose 50 mg .ROUTE .STK-MED ONE Stop: 07/18/19 11:19 Fentanyl (Sublimaze) Confirm Administered Dose 250 mcg .ROUTE .STK-MED ONE Stop: 07/18/19 11:19 Fentanyl (Sublimaze) Confirm Administered Dose 250 mcg .ROUTE .STK-MED ONE Stop: 07/18/19 13:12 Fentanyl (Sublimaze) 50 - 100 mcg IVPUSH Q5M PRN PRN Reason: Pain (severe 7-10) Last Admin: 07/18/19 16:58 Dose: 50 mcg Fentanyl (Sublimaze) Confirm Administered Dose 100 mcg .ROUTE .STK-MED ONE Stop: 07/18/19 16:10 Last Admin: 07/18/19 17:42 Dose: Not Given Hydromorphone HCl (Dilaudid) Confirm Administered Dose 2 mg .ROUTE .STK-MED ONE Stop: 07/18/19 14:45 Hydromorphone HCl (Dilaudid) Confirm Administered Dose 2 mg .ROUTE .STK-MED ONE Stop: 07/18/19 15:28 Lactated Ringer's (Ringers, Lactated) 1,000 mls @ 999 mls/hr IV BOLUS ONE Stop: 07/18/19 02:14 Last Admin: 07/18/19 01:46 Dose: 999 mls/hr Piperacillin Sod/Tazobactam (Sod 3.375 gm/ Sodium Chloride) 50 mls @ 100 mls/ hr IV Q6H [facility] Last Admin: 07/19/19 08:15 Dose: 100 mls/hr Lactated Ringer's (Ringers, Lactated) 1,000 mls @ 125 mls/hr IV ASDIRECTED [facility] Last Admin: 07/19/19 06:19 Dose: 125 mls/hr Sodium Chloride (Normal Saline) Confirm Administered Dose 20 mls @ as directed .ROUTE .STK-MED ONE Stop: 07/18/19 11:19 Acetaminophen 1,000 mg/ Premix 100 mls @ 400 mls/hr IV Q6H PRN PRN Reason: Pain Last Infusion: 07/18/19 17:01 Dose: Infused Acetaminophen (Ofirmev) Confirm Administered Dose 100 mls @ as directed .ROUTE .STK-MED ONE Stop: 07/18/19 16:42 Midazolam HCl (Versed 1 Mg/Ml) Confirm Administered Dose 2 mg .ROUTE .STK-MED ONE Stop: 07/18/19 11:19 Morphine Sulfate (Morphine Utility Aide 30 Mg In 30 Ml) 0 mg IV ASDIRECTED [facility]; Protocol Last Admin: 07/19/19 03:21 Dose: 30 mg Morphine Sulfate (Morphine) 2 mg IVPUSH ONETIME ONE Stop: 07/18/19 16:08 Last Admin: 07/18/19 16:31 Dose: 2 mg Ondansetron HCl (Zofran) 4 mg IVPUSH Q6H PRN PRN Reason: Nausea Propofol (Diprivan 20 Ml) Confirm Administered Dose 200 mg .ROUTE .STK-MED ONE Stop: 07/18/19 11:19 Rocuronium [place] (Zemuron) Confirm Administered Dose 100 mg .ROUTE .STK-MED ONE Stop: 07/18/19 11:19 Scopolamine (Transderm-Scop) 1.5 mg TOP ONETIME ONE Stop: 07/18/19 01:31 Last Admin: 07/18/19 02:09 Dose: 1.5 mg Sugammadex Sodium (Bridion) Confirm Administered Dose 200 mg .ROUTE .STK-MED ONE Stop: 07/18/19 14:38 - Exam Wound/Incisions: Healing Well General: Alert, Oriented Lungs: Normal Respiratory Effort Cardiovascular: Regular Rate GI/Abdominal Exam: Soft, Non-Tender, No Distention, No Mass, Other (Small blisters along the midline aspect of the incision ) Extremities: Normal Inspection, Normal Range of Motion Skin: Warm, Dry, Intact Psy/Mental Status: Alert, Normal Affect, Normal Mood Sepsis Event Note - Evaluation Sepsis Screening Result: No Definite Risk - Focused Exam Vital Signs: Vital Signs Temp Pulse Resp BP Pulse Ox 07/20/19 04:00 36.9 C 85 17 103/62 93 L 07/19/19 23:52 36.6 C 90 16 103/55 L 94 L Date Exam was Performed: 07/20/19 Time Exam was Performed: 08:17 - Problem List & Annotations (1) Acute cholecystitis SNOMED Code(s): 47852789 Code(s): K81.0 - ACUTE CHOLECYSTITIS Status: Acute Current Visit: Yes - Problem List Review Problem List Initiated/Reviewed/Updated: Yes - My Orders Last 24 Hours: Active Orders 24 hr Category Date Time Status Regular Diet [DIET] Diet 07/20/19 Lunch Active CBC W/O DIFF,HEMOGRAM [HEME] AM Lab 07/21/19 05:11 Ordered CMP [COMPREHENSIVE METABOLIC PN,CMP] [CHEM] AM Lab 07/21/19 05:11 Ordered Acetaminophen/oxyCODONE [Percocet 325-10 MG] Med 07/19/19 09:42 Active 2 tab PO Q4H PRN Heparin Sodium Med 07/19/19 14:15 Active 5,000 units SUBCUT Q12H Ketorolac [Toradol] Med 07/19/19 08:30 Active 10 mg PO Q6H Multivitamins [Tab-A-January] Med 07/19/19 09:00 Active 1 tab PO DAILY polyethylene glycoL 3350 [MiraLAX] Med 07/19/19 09:00 Active 17 gm PO DAILY Medication Orders Cyclobenzaprine HCl (Flexeril) 5 mg PO TID [facility] Last Admin: 07/20/19 06:30 Dose: 5 mg Admin: 07/19/19 22:21 Dose: 5 mg Admin: 07/19/19 14:29 Dose: 5 mg Admin: 07/19/19 06:16 Dose: 5 mg Admin: 07/18/19 22:42 Dose: 5 mg Diphenhydramine HCl (Benadryl) 25 mg IVPUSH Q4H PRN PRN Reason: Itching Diphenhydramine HCl (Benadryl) 25 mg IVPUSH Q6H PRN PRN Reason: Itching Diphenhydramine HCl (Benadryl) 25 mg PO Q6H PRN PRN Reason: Itching Duloxetine HCl (Cymbalta) 30 mg PO BEDTIME [facility] Last Admin: 07/19/19 21:05 Dose: 30 mg Admin: 07/18/19 20:53 Dose: 30 mg Heparin Sodium (Porcine) (Heparin Sodium) 5,000 units SUBCUT Q12H [facility] Last Admin: 07/20/19 02:45 Dose: 5,000 units Admin: 07/19/19 14:31 Dose: 5,000 units Hydromorphone HCl (Dilaudid) 0.5 mg IVPUSH Q1H PRN PRN Reason: Pain Last Admin: 07/18/19 07:56 Dose: 0.5 mg Admin: 07/18/19 01:53 Dose: 0.5 mg Ketorolac Tromethamine (Toradol) 10 mg PO Q6H [facility] Stop: 07/24/19 08:31 Last Admin: 07/20/19 02:45 Dose: 10 mg Admin: 07/19/19 20:26 Dose: 10 mg Admin: 07/19/19 14:29 Dose: 10 mg Admin: 07/19/19 08:42 Dose: 10 mg Multivitamins/Minerals/Vitamin C (Tab-A-January) 1 tab PO DAILY [facility] Last Admin: 07/19/19 08:42 Dose: 1 tab Naloxone HCl (Narcan) 0.04 mg IVPUSH Q3M PRN PRN Reason: Respiratory Depression Ondansetron HCl (Zofran) 4 mg IVPUSH Q6H PRN PRN Reason: Nausea/Vomiting Oxycodone/Acetaminophen (Percocet 325-10 Mg) 2 tab PO Q4H PRN PRN Reason: Pain Last Admin: 07/19/19 23:54 Dose: 2 tab Admin: 07/19/19 17:47 Dose: 2 tab Admin: 07/19/19 13:21 Dose: 2 tab Polyethylene Glycol (Miralax) 17 gm PO DAILY [facility] Last Admin: 07/19/19 08:42 Dose: 17 gm - Plan Plan (Free Text/Narrative):: Pain: IV dilaudid prn severe pain. Continue Ketoralac q 6hr scheduled. Prn percocet CV/Pulm: VSS. IS use and OOB activity. GI: Regular diet since passing flatus now. LFTs coming down. Hep C antibodies positive. Will have patient follow up with a PCP or GI physician for management of this afterwards. Multivitamin daily. Replace vitamin K. Continue miralax. Renal: IVF stopped. UOP adequate. ID: No need for antibiotics Heme: Hemoglobin down appropriately from OR blood loss Px: Heparin, SCDs. No need for GI given regular diet.
[2019-07-20] MEDS: Polyethylene Glycol 3350 Powder 17 GM Packet PO SCH (09:47)
[2019-07-20] MEDS: Multivitamin Tab PO SCH (09:47)
[2019-07-20] MEDS: DULOXETINE 30 MG PO SCH (21:40)
[2019-07-20] MEDS: Acetaminophen/oxyCODONE 325-10 MG Tab PO PRN (21:40)
[2019-07-21] MEDS: Heparin Sodium 5,000 Units/ML Vial SUBCUT SCH (01:49)
[2019-07-21] MEDS: Ketorolac 10 MG Tab PO SCH ×2 (01:49→09:23)
[2019-07-21 07:16] LABS: BLOOD UREA NITROGEN,BUN 7 mg/dL (7.0-18.0); CARBON DIOXIDE,CO2 26.1 mmol/L (21.0-32.0); CHLORIDE,CL 104 mmol/L (98-107); GLUCOSE RANDOM 90 mg/dL (74-106); SODIUM,NA 140 mmol/L (136-145)
[2019-07-21] MEDS: Acetaminophen/oxyCODONE 325-10 MG Tab PO PRN (07:30)
[2019-07-21] MEDS: Cyclobenzaprine 5 MG Tab PO SCH (07:30)
--- NOTE | 2019-07-21 08:21 | PCM.DCSUM1 ---
Discharge Summary - Hospital Course Free Text/Narrative:: Patient is a 24 year old female with a history of hepatitis C who presented with RUQ pain. She was found to have a large stone obstructing her gallbladder causing acute cholecystitis. She was admitted for fluid resuscitation. She was taken to the OR for a cholecystectomy. She had a large amount of inflammation around her gallbladder so the case was converted from laparoscopic to open. She did extremely well post op. She was placed on a MS BEAM SEALER but the morphine did not control her pain. She was switched to IV Dilaudid and oral Percocet. This controlled her pain extremely well. Her drain output decreased and it was removed on POD #1. She had return of bowel function and her diet was advanced. Her vitals remained stable. She was discharged home on POD #2 - Discharge Data Discharge Date: 07/21/19 Discharge Disposition: Home, Self-Care 01 Condition: Good - Referral to Home Health Primary Care Physician: PCP None - Discharge Diagnosis/Problem(s) (1) Acute cholecystitis SNOMED Code(s): 82809188 ICD Code: K81.0 - ACUTE CHOLECYSTITIS Status: Acute Current Visit: Yes - Patient Summary/Data Operative Procedure(s) Performed: Laparoscopic converted to open cholecystectomy - Patient Instructions Diet: Regular Diet as Tolerated, Drink 8-10+ Glasses/Day Activity: No Lifting Over 20 Pounds, Rest and Relax Today Driving: Do Not Drive Showering/Bathing: May Shower, No Tub Bathing/Swimming (for 2 weeks ) Wound/Incision Care: Keep Operative Site/Wound Site Clean and Dry Notify Provider of: Fever, Increased Pain, Swelling and Redness, Drainage, Nausea and/or Vomiting - Discharge Plan *PRESCRIPTION DRUG MONITORING PROGRAM REVIEWED*: Yes *COPY OF PRESCRIPTION DRUG MONITORING REPORT IN PATIENT KISHA: Yes Home Medications: Home Meds DULoxetine [Cymbalta] 30 mg PO BEDTIME 07/18/19 [History] Doxepin HCl [Doxepin] 50 mg PO BEDTIME 07/18/19 [History] Patient Handouts: Laparoscopic Cholecystectomy, Care After, [id number], Cholecystostomy, Care After Referrals: Holley Muhammad NP [Ordering Only Provider] - 07/25/19 11:30 am ([address] [place] [address] Please arrive 15 minutes early with ID and insurance cards.) Sadia Pinto MD [Physician] - - Discharge Summary/Plan Comment DC Time >30 min.: No - General Info Functional Status: Reports: Pain Controlled, Tolerating Diet, Ambulating, Urinating - Review of Systems General: Reports: No Symptoms HEENT: Reports: No Symptoms Pulmonary: Reports: No Symptoms Cardiovascular: Reports: No Symptoms Gastrointestinal: Reports: No Symptoms Genitourinary: Reports: No Symptoms Musculoskeletal: Reports: No Symptoms Skin: Reports: No Symptoms - Patient Data Vitals - Most Recent: Last Vital Signs Temp 36.6 C 07/21/19 07:00 Pulse 72 07/21/19 07:00 Resp 16 07/21/19 07:00 BP 112/72 07/21/19 07:00 Pulse Ox 97 07/21/19 07:00 Weight - Most Recent: 96.978 kg I&O - Last 24 hours: Intake & Output 07/20/19 07/21/19 07/21/19 22:59 06:59 14:59 Intake Total 400 1000 Output Total 2200 1400 Balance -1800 -400 Lab Results - Last 24 hrs: Laboratory Results - last 24 hr 07/20/19 07/20/19 07/21/19 Range/Units 13:37 14:07 06:40 WBC 4.29 (4.0-11.0) K/uL RBC 3.85 L (4.30-5.90) M/uL Hgb 10.0 L (12.0-16.0) g/dL Hct 31.1 L (36.0-46.0) % MCV 80.8 (80.0-98.0) fL MCH 26.0 L (27.0-32.0) pg MCHC 32.2 (31.0-37.0) g/dL RDW Std Deviation 43.2 (28.0-62.0) fl RDW Coeff of Yakelin 15 (11.0-15.0) % Plt Count 248 (150-400) K/uL MPV 9.80 (7.40-12.00) fL Nucleated RBC % 0.0 /100WBC Nucleated RBCs # 0 K/uL Sodium (136-145) mmol/L Potassium (3.5-5.1) mmol/L Chloride (98-107) mmol/L Carbon Dioxide (21.0-32.0) mmol/L BUN (7.0-18.0) mg/dL Creatinine (0.6-1.0) mg/dL Est Cr Clr Drug Dosing mL/min Estimated GFR (MDRD) ml/min Glucose (74-106) mg/dL POC Glucose 67 95 (60-110) mg/dL Calcium (8.5-10.1) mg/dL Total Bilirubin (0.2-1.0) mg/dL AST (15-37) IU/L ALT (14-63) IU/L Alkaline Phosphatase (46-116) U/L Total Protein (6.4-8.2) g/dL Albumin (3.4-5.0) g/dL Globulin (2.6-4.0) g/dL Albumin/Globulin Ratio (0.9-1.6) 07/21/19 Range/Units 06:40 WBC (4.0-11.0) K/uL RBC (4.30-5.90) M/uL Hgb (12.0-16.0) g/dL Hct (36.0-46.0) % MCV (80.0-98.0) fL MCH (27.0-32.0) pg MCHC (31.0-37.0) g/dL RDW Std Deviation (28.0-62.0) fl RDW Coeff of Yakelin (11.0-15.0) % Plt Count (150-400) K/uL MPV (7.40-12.00) fL Nucleated RBC % /100WBC Nucleated RBCs # K/uL Sodium 140 (136-145) mmol/L Potassium 3.0 L (3.5-5.1) mmol/L Chloride 104 (98-107) mmol/L Carbon Dioxide 26.1 (21.0-32.0) mmol/L BUN 7 (7.0-18.0) mg/dL Creatinine 0.6 (0.6-1.0) mg/dL Est Cr Clr Drug Dosing 127.65 mL/min Estimated GFR (MDRD) > 60.0 ml/min Glucose 90 (74-106) mg/dL POC Glucose (60-110) mg/dL Calcium 7.8 L (8.5-10.1) mg/dL Total Bilirubin 0.4 (0.2-1.0) mg/dL AST 83 H (15-37) IU/L ALT 194 H (14-63) IU/L Alkaline Phosphatase 95 (46-116) U/L Total Protein 6.1 L (6.4-8.2) g/dL Albumin 2.6 L (3.4-5.0) g/dL Globulin 3.5 (2.6-4.0) g/dL Albumin/Globulin Ratio 0.7 L (0.9-1.6) Med Orders - Current: Current Medications Cyclobenzaprine HCl (Flexeril) 5 mg PO TID [facility] Last Admin: 07/21/19 07:30 Dose: 5 mg Diphenhydramine HCl (Benadryl) 25 mg IVPUSH Q4H PRN PRN Reason: Itching Diphenhydramine HCl (Benadryl) 25 mg IVPUSH Q6H PRN PRN Reason: Itching Diphenhydramine HCl (Benadryl) 25 mg PO Q6H PRN PRN Reason: Itching Duloxetine HCl (Cymbalta) 30 mg PO BEDTIME [facility] Last Admin: 07/20/19 21:40 Dose: 30 mg Heparin Sodium (Porcine) (Heparin Sodium) 5,000 units SUBCUT Q12H [facility] Last Admin: 07/21/19 01:49 Dose: 5,000 units Hydromorphone HCl (Dilaudid) 0.5 mg IVPUSH Q1H PRN PRN Reason: Pain Last Admin: 07/18/19 07:56 Dose: 0.5 mg Ketorolac Tromethamine (Toradol) 10 mg PO Q6H [facility] Stop: 07/24/19 08:31 Last Admin: 07/21/19 01:49 Dose: 10 mg Multivitamins/Minerals/Vitamin C (Tab-A-January) 1 tab PO DAILY [facility] Last Admin: 07/20/19 09:47 Dose: 1 tab Naloxone HCl (Narcan) 0.04 mg IVPUSH Q3M PRN PRN Reason: Respiratory Depression Ondansetron HCl (Zofran) 4 mg IVPUSH Q6H PRN PRN Reason: Nausea/Vomiting Oxycodone/Acetaminophen (Percocet 325-10 Mg) 2 tab PO Q4H PRN PRN Reason: Pain Last Admin: 07/21/19 07:30 Dose: 2 tab Polyethylene Glycol (Miralax) 17 gm PO DAILY [facility] Last Admin: 07/20/19 09:47 Dose: 17 gm Potassium Chloride (Klor-Con M20) 40 meq PO DAILY [facility] Discontinued Medications Acetaminophen (Tylenol) 650 mg PO Q6H PRN PRN Reason: Fever Bupivacaine HCl (Sensorcaine-Mpf 0.5%) Confirm Administered Dose 10 ml .ROUTE .STK-MED ONE Stop: 07/18/19 12:00 Bupivacaine HCl (Sensorcaine-Mpf 0.5%) Confirm Administered Dose 10 ml .ROUTE .STK-MED ONE Stop: 07/18/19 13:09 Bupivacaine HCl (Marcaine 0.5%) Confirm Administered Dose 120 ml .ROUTE .STK- MED ONE Stop: 07/18/19 13:09 Cefazolin Sodium (Ancef) Confirm Administered Dose 1 gm .ROUTE .STK-MED ONE Stop: 07/18/19 14:05 Duloxetine HCl (Cymbalta) 30 mg PO BEDTIME [facility] Ephedrine Sulfate (Ephedrine Sulfate) Confirm Administered Dose 50 mg .ROUTE .STK-MED ONE Stop: 07/18/19 11:19 Fentanyl (Sublimaze) Confirm Administered Dose 250 mcg .ROUTE .STK-MED ONE Stop: 07/18/19 11:19 Fentanyl (Sublimaze) Confirm Administered Dose 250 mcg .ROUTE .STK-MED ONE Stop: 07/18/19 13:12 Fentanyl (Sublimaze) 50 - 100 mcg IVPUSH Q5M PRN PRN Reason: Pain (severe 7-10) Last Admin: 07/18/19 16:58 Dose: 50 mcg Fentanyl (Sublimaze) Confirm Administered Dose 100 mcg .ROUTE .STK-MED ONE Stop: 07/18/19 16:10 Last Admin: 07/18/19 17:42 Dose: Not Given Hydromorphone HCl (Dilaudid) Confirm Administered Dose 2 mg .ROUTE .STK-MED ONE Stop: 07/18/19 14:45 Hydromorphone HCl (Dilaudid) Confirm Administered Dose 2 mg .ROUTE .STK-MED ONE Stop: 07/18/19 15:28 Lactated Ringer's (Ringers, Lactated) 1,000 mls @ 999 mls/hr IV BOLUS ONE Stop: 07/18/19 02:14 Last Admin: 07/18/19 01:46 Dose: 999 mls/hr Piperacillin Sod/Tazobactam (Sod 3.375 gm/ Sodium Chloride) 50 mls @ 100 mls/ hr IV Q6H [facility] Last Admin: 07/19/19 08:15 Dose: 100 mls/hr Lactated Ringer's (Ringers, Lactated) 1,000 mls @ 125 mls/hr IV ASDIRECTED [facility] Last Admin: 07/19/19 06:19 Dose: 125 mls/hr Sodium Chloride (Normal Saline) Confirm Administered Dose 20 mls @ as directed .ROUTE .STK-MED ONE Stop: 07/18/19 11:19 Acetaminophen 1,000 mg/ Premix 100 mls @ 400 mls/hr IV Q6H PRN PRN Reason: Pain Last Infusion: 07/18/19 17:01 Dose: Infused Acetaminophen (Ofirmev) Confirm Administered Dose 100 mls @ as directed .ROUTE .STK-MED ONE Stop: 07/18/19 16:42 Midazolam HCl (Versed 1 Mg/Ml) Confirm Administered Dose 2 mg .ROUTE .STK-MED ONE Stop: 07/18/19 11:19 Morphine Sulfate (Morphine [employer] Plastic 30 Mg In 30 Ml) 0 mg IV ASDIRECTED [facility]; Protocol Last Admin: 07/19/19 03:21 Dose: 30 mg Morphine Sulfate (Morphine) 2 mg IVPUSH ONETIME ONE Stop: 07/18/19 16:08 Last Admin: 07/18/19 16:31 Dose: 2 mg Ondansetron HCl (Zofran) 4 mg IVPUSH Q6H PRN PRN Reason: Nausea Potassium Chloride (Klor-Con M20) 40 meq PO ONETIME ONE Stop: 07/20/19 08:24 Last Admin: 07/20/19 09:47 Dose: 40 meq Propofol (Diprivan 20 Ml) Confirm Administered Dose 200 mg .ROUTE .STK-MED ONE Stop: 07/18/19 11:19 Rocuronium [place] (Zemuron) Confirm Administered Dose 100 mg .ROUTE .STK-MED ONE Stop: 07/18/19 11:19 Scopolamine (Transderm-Scop) 1.5 mg TOP ONETIME ONE Stop: 07/18/19 01:31 Last Admin: 07/18/19 02:09 Dose: 1.5 mg Sugammadex Sodium (Bridion) Confirm Administered Dose 200 mg .ROUTE .[facility]-MED ONE Stop: 07/18/19 14:38 - Exam General: Reports: Alert, Oriented HEENT: Reports: Pupils Equal, Pupils Reactive Lungs: Reports: Clear to Auscultation, Normal Respiratory Effort Cardiovascular: Reports: Regular Rate, Regular Rhythm GI/Abdominal Exam: Soft, Non-Tender, No Distention, No Mass Back Exam: Reports: Normal Inspection, Full Range of Motion Extremities: Normal Inspection Skin: Reports: Warm, Dry, Intact Wound/Incisions: Reports: Healing Well
[2019-07-21] MEDS ORDERED: Potassium Chloride 20 MEQ Tab.ER PO SCH (09:00)
[2019-07-21] MEDS: Polyethylene Glycol 3350 Powder 17 GM Packet PO SCH (09:23)
[2019-07-21] MEDS: Multivitamin Tab PO SCH (09:23)
== END 2019-07-21 11:30 | disposition home or self-care (01) | DRG 416 ==
LOC: MW.MS 00:52 → OBSVTOIN 15:59 → MW.MS 16:58
PROVIDERS: ADMIT Surgery; ATTEND Surgery
PROC: 0FT40ZZ Resection of Gallbladder, Open Approach (ICD-10-PCS; principal; 2019-07-18)
PROC: 0FJ44ZZ Inspection of Gallbladder, Percutaneous Endoscopic Approach (ICD-10-PCS; 2019-07-18)
DX: K80.00 Calculus of gallbladder with acute cholecystitis without obstruction (principal); H54.7 Unspecified visual loss; F31.9 Bipolar disorder, unspecified; D50.9 Iron deficiency anemia, unspecified; F17.210 Nicotine dependence, cigarettes, uncomplicated; Z53.31 Laparoscopic surgical procedure converted to open procedure; Z86.19 Personal history of other infectious and parasitic diseases
CPT/HCPCS: 00790; 36415; 80053; 82962; 85025; 85027; 86803; 88304; A9270-GY; J0131; J0330; J0690; J1170; J1644; J2250; J2270; J2274; J2543; J2704; J3010; J3490; J7050; J7120